=== PATIENT | male | born 1940 | race American Indian/Alaskan Native ===

== ENCOUNTER 2020-12-26 14:25 | Outpatient (CLI) | payer MEDICARE ==
--- NOTE | 2020-12-26 15:32 | Cat Scan Report ---
CT chest wo con INDICATION / CLINICAL INFORMATION: R911.1 PULMONARY NODULE. TECHNIQUE: Axial CT imaging of the chest was obtained without contrast. Coronal and sagittal reformatted imaging obtained and reviewed. All CT scans at this location are performed using CT dose reduction for ALAR A by means of automated exposure control. COMPARISON: Recent chest CT 06/26/2020 FINDINGS: CT imaging of the thorax does not demonstrate any mediastinal or hilar adenopathy. There is mild athe rosclerotic disease within the visualized thoracic aorta. Small amount of coronary artery calcificati on is noted as well. Heart size is borderline enlarged. No pericardial effusion present. Previously noted 6 mm noncalcified pulmonary nodule in the right midlung adjacent to the major fissur e is stable in size and appearance. However, the nodular density described on the prior chest CT in t he inferior left lung, adjacent to the mediastinum appears more prominent in size and appearance, antony suring approximately 11 mm. This may represent an enlarging pulmonary nodule. No pleural effusion or additional interval change. Imaging through the upper abdomen again demonstrates cholelithiasis as well as left renal cysts. Thes e were described on the prior study. Review of osseous structures demonstrates spondylitic change but no acute significant osseous abnorma lity. IMPRESSION: 1. Questionable enlarging pulmonary nodule in the inferomedial left lower lobe. If possible, further evaluation with PET/CT scan to determine if this is malignant, or warrants further evaluation with bi opsy, is suggested. 2. Stable benign-appearing 6 mm pulmonary nodule, right midlung. 3. Cholelithiasis. Left renal cysts. Signer Name: Marielle Jolley MD Signed: 12/26/2020 3:27 PM Workstation Name: [id number]
== END 2020-12-26 14:26 | disposition home or self-care (01) ==
LOC: CT 14:25
PROVIDERS: ATTEND Specialist
DX: I25.10 Atherosclerotic heart disease of native coronary artery without angina pectoris (principal); I70.0 Atherosclerosis of aorta; K80.20 Calculus of gallbladder without cholecystitis without obstruction; N28.1 Cyst of kidney, acquired; R91.1 Solitary pulmonary nodule
CPT/HCPCS: 71250